=== PATIENT | male | born 1990 | race Caucasian/White ===

== ENCOUNTER 2019-10-15 13:38 | Outpatient (RCR) | payer OTHER, SELFPAY ==
[2019-08-06 15:12] LABS: Hematocrit 40.1 % (42.0-52.0); Hemoglobin 14.1 g/dL (14.0-18.0); Mean Corpuscular HGB Conc 35.2 g/dl (32-36); Mean Corpuscular Volume 110.8 fl (80-100); Mean Platelet Volume 10.9 fl (7.4-10.4); Platelet Count Result 116 k/mm3 (150-375); Red Blood Count 3.62 M/mm3 (4.6-6.20); Red Cell Distribution Width 14.6 % (11.5-14.5); White Blood Count 6.7 K/mm3 (4.5-10.0)
[2019-08-06 15:27] LABS: Alanine Aminotransferase 104 U/L (4-50); Alkaline Phosphatase 91 U/L (38-126); Aspartate Amino Transferase 52 U/L (17-59); Bilirubin,Total 1.7 mg/dL (0.2-1.3); Blood Urea Nitrogen 20 mg/dL (9-20); Calcium 9.3 mg/dL (8.4-10.2); Carbon Dioxide 28 mmol/L (22-30); Chloride 103 mmol/L (98-107); Estimated Glomerular Filt Rate > 60; Glucose 97 mg/dL (75-110); Potassium 3.6 mmol/L (3.4-5.0); Sodium 137 mmol/L (137-145)
[2019-08-13 12:42] LABS: Hematocrit 38.6 % (42.0-52.0); Hemoglobin 13.3 g/dL (14.0-18.0); Mean Corpuscular HGB Conc 34.5 g/dl (32-36); Mean Corpuscular Hemoglobin 38.4 pg (26-34); Mean Corpuscular Volume 111.6 fl (80-100); Mean Platelet Volume 10.8 fl (7.4-10.4); Platelet Count Result 95 k/mm3 (150-375); Red Blood Count 3.46 M/mm3 (4.6-6.20); Red Cell Distribution Width 14.5 % (11.5-14.5); White Blood Count 3.5 K/mm3 (4.5-10.0)
[2019-08-13 13:02] LABS: Alanine Aminotransferase 118 U/L (4-50); Albumin Level 3.8 g/dL (3.5-5.1); Alkaline Phosphatase 70 U/L (38-126); Aspartate Amino Transferase 55 U/L (17-59); Bilirubin,Total 1.3 mg/dL (0.2-1.3); Blood Urea Nitrogen 13 mg/dL (9-20); Calcium 8.8 mg/dL (8.4-10.2); Carbon Dioxide 29 mmol/L (22-30); Chloride 105 mmol/L (98-107); Estimated Glomerular Filt Rate > 60; Glucose 102 mg/dL (75-110); Potassium 4.2 mmol/L (3.4-5.0); Sodium 139 mmol/L (137-145)
[2019-09-10 11:27] LABS: Hematocrit 39.3 % (42.0-52.0); Hemoglobin 13.3 g/dL (14.0-18.0); Immature Platelet Fraction Pct 3.9 % (0.9-11.2); Mean Corpuscular HGB Conc 33.8 g/dl (32-36); Mean Corpuscular Hemoglobin 38.6 pg (26-34); Mean Corpuscular Volume 113.9 fl (80-100); Mean Platelet Volume 10.7 fl (7.4-10.4); Platelet Count Result 95 k/mm3 (150-375); Red Blood Count 3.45 M/mm3 (4.6-6.20); White Blood Count 3.4 K/mm3 (4.5-10.0)
[2019-09-10 12:24] LABS: Alanine Aminotransferase 134 U/L (4-50); Albumin Level 4.2 g/dL (3.5-5.1); Alkaline Phosphatase 65 U/L (38-126); Aspartate Amino Transferase 70 U/L (17-59); Bilirubin,Total 1.6 mg/dL (0.2-1.3); Blood Urea Nitrogen 12 mg/dL (9-20); Calcium 8.6 mg/dL (8.4-10.2); Carbon Dioxide 26 mmol/L (22-30); Chloride 106 mmol/L (98-107); Estimated Glomerular Filt Rate > 60; Glucose 97 mg/dL (75-110); Potassium 4.3 mmol/L (3.4-5.0); Sodium 139 mmol/L (137-145)
[2019-10-08 14:52] LABS: Hematocrit 39.1 % (42.0-52.0); Hemoglobin 13.6 g/dL (14.0-18.0); Mean Corpuscular HGB Conc 34.8 g/dl (32-36); Mean Corpuscular Hemoglobin 38.1 pg (26-34); Mean Corpuscular Volume 109.5 fl (80-100); Mean Platelet Volume 11.6 fl (7.4-10.4); Platelet Count Result 87 k/mm3 (150-375); Red Blood Count 3.57 M/mm3 (4.6-6.20); Red Cell Distribution Width 14.6 % (11.5-14.5)
[2019-10-08 15:09] LABS: Alanine Aminotransferase 154 U/L (4-50); Albumin Level 3.9 g/dL (3.5-5.1); Alkaline Phosphatase 78 U/L (38-126); Aspartate Amino Transferase 84 U/L (17-59); Blood Urea Nitrogen 11 mg/dL (9-20); Calcium 9.1 mg/dL (8.4-10.2); Carbon Dioxide 29 mmol/L (22-30); Chloride 100 mmol/L (98-107); Estimated Glomerular Filt Rate > 60; Glucose 128 mg/dL (75-110); Potassium 3.6 mmol/L (3.4-5.0); Sodium 135 mmol/L (137-145)
[2019-10-15 14:00] LABS: Hematocrit 38.4 % (42.0-52.0); Hemoglobin 13.6 g/dL (14.0-18.0); Immature Platelet Fraction Pct 3.5 % (0.9-11.2); Mean Corpuscular HGB Conc 35.4 g/dl (32-36); Mean Corpuscular Hemoglobin 39.4 pg (26-34); Mean Corpuscular Volume 111.3 fl (80-100); Mean Platelet Volume 10.8 fl (7.4-10.4); Platelet Count Result 82 k/mm3 (150-375); Red Blood Count 3.45 M/mm3 (4.6-6.20); Red Cell Distribution Width 14.3 % (11.5-14.5)
[2019-10-15 14:07] LABS: White Blood Count 1.1 K/mm3 (4.5-10.0)
[2019-10-15 14:12] LABS: Alanine Aminotransferase 134 U/L (4-50); Alkaline Phosphatase 78 U/L (38-126); Aspartate Amino Transferase 65 U/L (17-59); Bilirubin,Total 2.1 mg/dL (0.2-1.3); Blood Urea Nitrogen 11 mg/dL (9-20); Calcium 8.9 mg/dL (8.4-10.2); Carbon Dioxide 28 mmol/L (22-30); Chloride 103 mmol/L (98-107); Estimated Glomerular Filt Rate > 60; Glucose 110 mg/dL (75-110); Potassium 3.8 mmol/L (3.4-5.0); Sodium 137 mmol/L (137-145)
== END 2019-11-04 23:59 | disposition home or self-care (01) ==
LOC: ANHLAB 13:38
DX: C91.00 Acute lymphoblastic leukemia not having achieved remission (principal)
CPT/HCPCS: 36415; 80053; 85027

== ENCOUNTER 2019-12-03 13:12 | Outpatient (RCR) | payer OTHER, SELFPAY ==
[2019-11-05 14:12] LABS: Hematocrit 39.2 % (42.0-52.0); Hemoglobin 13.5 g/dL (14.0-18.0); Mean Corpuscular HGB Conc 34.4 g/dl (32-36); Mean Corpuscular Volume 113.3 fl (80-100); Mean Platelet Volume 10.8 fl (7.4-10.4); Platelet Count Result 94 k/mm3 (150-375); Red Blood Count 3.46 M/mm3 (4.6-6.20); Red Cell Distribution Width 14.6 % (11.5-14.5); White Blood Count 4.2 K/mm3 (4.5-10.0)
[2019-11-05 14:23] LABS: Alanine Aminotransferase 124 U/L (4-50); Alkaline Phosphatase 72 U/L (38-126); Aspartate Amino Transferase 57 U/L (17-59); Bilirubin,Total 1.7 mg/dL (0.2-1.3); Blood Urea Nitrogen 11 mg/dL (9-20); Calcium 9.1 mg/dL (8.4-10.2); Carbon Dioxide 28 mmol/L (22-30); Chloride 104 mmol/L (98-107); Estimated Glomerular Filt Rate > 60; Glucose 96 mg/dL (75-110); Potassium 4.1 mmol/L (3.4-5.0); Sodium 141 mmol/L (137-145)
[2019-11-12 14:22] LABS: Hematocrit 38.6 % (42.0-52.0); Hemoglobin 13.1 g/dL (14.0-18.0); Immature Platelet Fraction Pct 3.7 % (0.9-11.2); Mean Corpuscular HGB Conc 33.9 g/dl (32-36); Mean Corpuscular Hemoglobin 38.5 pg (26-34); Mean Corpuscular Volume 113.5 fl (80-100); Mean Platelet Volume 10.9 fl (7.4-10.4); Platelet Count Result 92 k/mm3 (150-375); Red Cell Distribution Width 14.4 % (11.5-14.5); White Blood Count 2.4 K/mm3 (4.5-10.0)
[2019-11-12 14:33] LABS: Alanine Aminotransferase 115 U/L (4-50); Albumin Level 3.9 g/dL (3.5-5.1); Alkaline Phosphatase 85 U/L (38-126); Aspartate Amino Transferase 56 U/L (17-59); Bilirubin,Total 1.4 mg/dL (0.2-1.3); Blood Urea Nitrogen 12 mg/dL (9-20); Calcium 8.9 mg/dL (8.4-10.2); Carbon Dioxide 28 mmol/L (22-30); Chloride 104 mmol/L (98-107); Estimated Glomerular Filt Rate > 60; Glucose 108 mg/dL (75-110); Potassium 3.8 mmol/L (3.4-5.0); Sodium 138 mmol/L (137-145)
[2019-12-03 13:44] LABS: Hematocrit 38.3 % (42.0-52.0); Hemoglobin 13.2 g/dL (14.0-18.0); Mean Corpuscular HGB Conc 34.5 g/dl (32-36); Mean Corpuscular Hemoglobin 39.3 pg (26-34); Mean Platelet Volume 11.5 fl (7.4-10.4); Platelet Count Result 90 k/mm3 (150-375); Red Blood Count 3.36 M/mm3 (4.6-6.20); Red Cell Distribution Width 13.8 % (11.5-14.5); White Blood Count 3.5 K/mm3 (4.5-10.0)
[2019-12-03 13:56] LABS: Alanine Aminotransferase 129 U/L (4-50); Albumin Level 3.8 g/dL (3.5-5.1); Alkaline Phosphatase 80 U/L (38-126); Aspartate Amino Transferase 62 U/L (17-59); Bilirubin,Total 2.1 mg/dL (0.2-1.3); Blood Urea Nitrogen 12 mg/dL (9-20); Calcium 8.5 mg/dL (8.4-10.2); Carbon Dioxide 28 mmol/L (22-30); Chloride 104 mmol/L (98-107); Estimated Glomerular Filt Rate > 60; Glucose 131 mg/dL (75-110); Potassium 3.9 mmol/L (3.4-5.0); Sodium 137 mmol/L (137-145)
== END 2020-02-03 23:59 | disposition home or self-care (01) ==
LOC: ANHLAB 13:12
DX: C91.00 Acute lymphoblastic leukemia not having achieved remission (principal)
CPT/HCPCS: 36415; 80053; 85027; 85055

== ENCOUNTER 2020-06-02 10:11 | Emergency (ER) | payer OTHER, SELFPAY ==
--- NOTE | ~2020-06-02 | CT_ITS ---
EXAMINATION: CT abdomen pelvis w con DATE: 06/02/2020 11:20 INDICATION: Right lower quadrant and right flank pain. History of kidney stones. TECHNIQUE: Computed tomography (CT) of the abdomen and pelvis was performed with 100 cc Omnipaque 350 intravenous contrast. Automated exposure control and iterative reconstruction technique were employe d. Exam dose: 1489.74 mGy-cm total exam DLP. COMPARISON: None. FINDINGS: There is minimal atelectasis in the lower lung zones. Normal heart size. No pericardial or pleural effusion. There is a small sliding hiatal hernia. There is a phrygian cap of the gallbladder. The gallbladder is distended. No apparent gallbladder wal l thickening. No pericholecystic fat stranding or fluid. No obvious gallstones are noted. Ultrasound would be more sensitive for detection of cholelithiasis. No bile duct dilatation. No hepatic space-occupying mass lesion is detected. There is splenomegaly. No pancreatic mass lesion or calcification or ductal dilatation. Normal morphology of the adrenal glands. There is an approximately 4.6 mm proximal right ureteral obstructing calculus with mild right hydrone phrosis, mild proximal periureteral stranding. There is an approximately 2 mm lower pole left renal nonobstructing calculus. No renal space occupying mass lesion. Normal caliber of the abdominal aorta. No intraperitoneal or retroperitoneal or pelvic mass lesion or adenopathy or ascites. The urinary bladder, seminal vesicles and prostate gland are unremarkable. No bowel obstruction, bowel wall thickening, pneumatosis or intraperitoneal free air. Small fat-containing umbilical hernia. Included skeletal structures are unremarkable. IMPRESSION: 4.6 mm proximal right ureteral obstructing calculus with mild right hydronephrosis 2 mm nonobstructing lower pole left renal calculus Small sliding hiatal hernia Splenomegaly Reviewed, dictated and finalized at [facility]. Reviewed, dictated and finalized at [facility]. IMPRESSION: 4.6 mm proximal right ureteral obstructing calculus with mild righ t hydronephrosis 2 mm nonobstructing lower pole left renal calculus Small sliding hiatal hernia Splenomegaly
--- NOTE | ~2020-06-02 | XR_ITS ---
XR abdomen/kub 1V DATE: 06/02/2020 12:53 INDICATION: Right abdominal pain. Urolithiasis. TECHNIQUE: AP projection, 2 views COMPARISON: 06/12/2020 CT abdomen pelvis FINDINGS: There is a partially obstructing calcified calculus of the right ureter at the L2 level wit h proximal mild hydroureteronephrosis. No hydronephrosis on the left. No filling defect of the renal collecting systems, ureters or urinary bladder is evident. No bowel obstruction. The psoas shadows are intact. No visceromegaly is evident. Included skeletal structures are unremarkable. IMPRESSION: Partially obstructing right ureteral calculus at L2 level with mild proximal right hydrou reteronephrosis Reviewed, dictated and finalized at [facility]. Reviewed, dictated and finalized at [facility]. IMPRESSION: Partially obstructing right ureteral calculus at L2 level with mild proximal right hydroureteronephrosis
[2020-06-02 10:09] VITALS: BP 149/90; PULSE 64; RESP 20; TEMP 36.4; O2SAT 97
[2020-06-02 10:34] LABS: Basophils Percent Auto 0.2 % (0.2-1.2); Eosinophils Percent Auto 0.2 % (0-4.4); Hematocrit 37.9 % (42.0-52.0); Hemoglobin 13.3 g/dL (14.0-18.0); Immature Granulocyte Absolute 0.02 K/mm3 (0.00-0.031); Immature Granulocyte Percent A 0.4 % (0-0.5); Immature Platelet Fraction Pct 4.4 % (0.9-11.2); Lymphocytes Absolute Auto 0.13 K/mm3 (0.9-3.2); Lymphocytes Percent Auto 2.9 % (18.3-44.2); Mean Corpuscular HGB Conc 35.1 g/dl (32-36); Mean Corpuscular Hemoglobin 37.9 pg (26-34); Mean Platelet Volume 10.9 fl (7.4-10.4); Monocytes Absolute Auto 0.4 K/mm3 (0.1-0.6); Monocytes Percent Auto 8.9 % (2.6-8.5); Neutrophils Absolute Auto 3.9 K/mm3 (1.3-6.7); Neutrophils Percent Auto 87.4 % (45.5-73.1); Platelet Count Result 107 k/mm3 (150-375); Red Blood Count 3.51 M/mm3 (4.6-6.20); Red Cell Distribution Width 14.8 % (11.5-14.5); White Blood Count 4.5 K/mm3 (4.5-10.0)
--- NOTE | 2020-06-02 10:41 | ED.ABDPAIN ---
HPI - Abdominal Pain General Chief Complaint: Abdominal Pain <Iveth Cheng PA-C - Last Filed: 06/02/20 13:24> Stated Complaint: ABD PAIN <Iveth Cheng PA-C - Last Filed: 06/02/20 13:24> Time Seen by Provider: 06/02/20 10:14 <Iveth Cheng PA-C - Last Filed: 06/02/20 13:24> Source: patient <Iveth Cheng PA-C - Last Filed: 06/02/20 13:24> Mode of arrival: EMS <Iveth Cheng PA-C - Last Filed: 06/02/20 13:24> Limitations: no limitations <Iveth Cheng PA-C - Last Filed: 06/02/20 13:24> History of Present Illness HPI narrative: This is a 29-year-old male that presents to the emergency department for right-sided flank pain since this morning. Reports the pain radiates into the right side of his abdomen. Associated with nausea and vomiting. Denies fever, dysuria, or hematuria. <Iveth Cheng PA-C - Last Filed: 06/02/20 13:24> Related Data Allergies/Adverse Reactions: Allergies Allergy/AdvReac Type Severity Reaction Status Date / Time No Known Allergies Allergy Verified 06/02/20 10:13 <Iveth Cheng PA-C - Last Filed: 06/02/20 13:24> Review of Systems Review of Systems: Narrative: CONSTITUTIONAL: Denies fever GASTROINTESTINAL: Reports abdominal pain, nausea, vomiting GENITOURINARY: Denies dysuria or hematuria. <Iveth Cheng PA-C - Last Filed: 06/02/20 13:24> All systems reviewed & are unremarkable except as noted in HPI and below <Iveth Cheng PA-C - Last Filed: 06/02/20 13:24> FOR[facility]LY [facility] Past Medical History Medical History: Medical History (Updated 06/02/20 @ 13:22 by Iveth Cheng PA-C) Acute lymphoblastic leukemia (ALL) <LUIS Starr Last Filed: 06/02/20 13:24> Social History Social History: Social History (Updated 06/02/20 @ 10:44 by Iveth Cheng PA-C) Substance use: never <Iveth Cheng PA-C - Last Filed: 06/02/20 13:24> Exam Narrative: Exam Narrative: GENERAL: Well-appearing, obese, and in no acute distress. HEAD: Normocephalic, atraumatic. EYES: EOMI. CHEST: Clear to auscultation. No respiratory distress. No wheezes rales or rhonchi HEART: Regular rate and rhythm. No murmur heard. Normal peripheral pulses. ABDOMEN: Soft, nontender, nondistended, normal active bowel sounds. No CVA tenderness EXTREMITIES: Normal range of motion. No edema. SKIN: Warm, dry, no rash. NEURO: No focal deficits. Alert and oriented x3. PSYCH: Normal mood and affect <Iveth Cheng PA-C - Last Filed: 06/02/20 13:24> Course Consultations Consultation #1: Spoke with Dr. Feliz about patient and work-up will follow-up in clinic <Iveth Cheng PA-C - Last Filed: 06/02/20 13:24> Date: 06/02/20 <Iveth Cheng PA-C - Last Filed: 06/02/20 13:24> Time: 13:20 <Iveth Cheng PA-C - Last Filed: 06/02/20 13:24> Vital Signs Vital signs: Vital Signs Temperature 97.6 F 06/02/20 10:09 Pulse Rate 64 06/02/20 10:09 Respiratory Rate 20 06/02/20 10:09 Blood Pressure 149/90 H 06/02/20 10:09 Pulse Oximetry 97 06/02/20 10:09 Temperature 97.6 F 06/02/20 10:09 Pulse Rate 74 06/02/20 12:45 Respiratory Rate 18 06/02/20 12:45 Blood Pressure 135/77 06/02/20 12:45 Pulse Oximetry 99 06/02/20 12:45 <Iveth Cheng PA-C - Last Filed: 06/02/20 13:24> Vital Signs Temperature 97.6 F 06/02/20 10:09 Pulse Rate 64 06/02/20 10:09 Respiratory Rate 20 06/02/20 10:09 Blood Pressure 149/90 H 06/02/20 10:09 Pulse Oximetry 97 06/02/20 10:09 Temperature 97.6 F 06/02/20 10:09 Pulse Rate 74 06/02/20 12:45 Respiratory Rate 18 06/02/20 12:45 Blood Pressure 135/77 06/02/20 12:45 Pulse Oximetry 99 06/02/20 12:45 <Fifi Edwards MD - Last Filed: 06/02/20 16:00> MDM - Abdominal Pain MDM Narrative Medical decision making narrative: Patient presents the emergency department for right flank pain and right lower quadr
[2020-06-02 10:48] LABS: Anion Gap 7 mmol/L (8-16); Blood Urea Nitrogen 9 mg/dL (9-20); Calcium 8.5 mg/dL (8.4-10.2); Carbon Dioxide 24 mmol/L (22-30); Chloride 106 mmol/L (98-107); Estimated CRCL calculation 190 ml/min; Estimated Glomerular Filt Rate > 60; Glucose 158 mg/dL (75-110); Potassium 3.5 mmol/L (3.4-5.0); Sodium 137 mmol/L (137-145)
[2020-06-02 12:19] LABS: Add Urine Microscopic? YES; Appearance Urine Clear (Clear); Bilirubin Urine Negative (Negative); Blood Urine 3+ (Negative); Color Urine Yellow (Yellow); Glucose Urine UA Negative (Negative); Ketones Urine Negative (Negative); Leukocyte Esterase Ur Negative LEU/UL (Negative); Mucus Urine Rare /lpf; Nitrate Urine Negative (Negative); Protein Urine Negative (Negative); RBC Urine >75 /hpf (0-2); Specific Grav Ur 1.023 (1.001-1.035); Urobilinogen Urine Negative mg/dL (<2.0); WBC Urine 0-3 /hpf
[2020-06-02 12:45] VITALS: BP 135/77; PULSE 74; RESP 18; O2SAT 99
== END 2020-06-02 13:50 | disposition home or self-care (01) ==
PROVIDERS: Emergency Provider General Practice
DX: N13.2 Hydronephrosis with renal and ureteral calculous obstruction (principal); R16.1 Splenomegaly, not elsewhere classified; K44.9 Diaphragmatic hernia without obstruction or gangrene; Z85.6 Personal history of leukemia
CPT/HCPCS: 36415; 74018; 74177; 80048; 81001; 85025; 85055; 99284; Q9967